=== PATIENT | male | born 2000 | race Caucasian/White ===

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

== ENCOUNTER → 2019-03-06 | Outpatient (CLI) | payer OTHER | END | disposition home or self-care (01) | LOC: LAB 09:50 → LAB SHORT 09:50 | DX: R63.4 Abnormal weight loss (principal); R11.0 Nausea | CPT/HCPCS: 87177; 87209 ==

== ENCOUNTER → 2019-03-07 | Outpatient (CLI) | payer OTHER | END | disposition home or self-care (01) | LOC: LAB 16:17 → LAB SHORT 16:17 | DX: R63.4 Abnormal weight loss (principal); R11.0 Nausea | CPT/HCPCS: 87177; 87209 ==

== ENCOUNTER 2019-06-13 20:20 | Emergency (ER) | payer OTHER ==
[~2019-06-13] VITALS: Ht 188 cm; Wt 61.2 kg
== END 2019-06-13 21:25 | disposition home or self-care (01) ==
LOC: ER 20:20
DX: Z77.120 Contact with and (suspected) exposure to mold (toxic) (principal)
CPT/HCPCS: 71046; 99283-25

== ENCOUNTER 2020-09-27 14:36 | Emergency (ER) | payer OTHER | END 2020-09-27 15:32 | disposition left against medical advice (07) | LOC: ER 14:36 | DX: Z53.21 Procedure and treatment not carried out due to patient leaving prior to being seen by health care provider (principal) ==